=== PATIENT | male | born 1985 | race Caucasian/White ===

== ENCOUNTER 2018-07-19 14:03 | Inpatient (IN) | payer BC ==
[~2018-07-19] VITALS: Ht 182.9 cm; Wt 167.8 kg
--- NOTE | 2018-07-19 14:22 | NUR ---
Note ferdinand in EDM - 07/19/18 at 1427 by IRVIN ED Nurse Note: Patient walked into ED c/o having tunneled, blurry vision and unable to focus and remember words that lasted about 30 minutes this morning. patient reports he was working when it "suddenly happened" Patient reports he has headache now 05/16 that started about 20 minutes ago. patient is ambulatory steady gait denies any dizziness patient is alert awake x4 bilaterally equal strength noted c/o trouble focusing/concentration tunneled vision and unable to remember simple word or express himself over the phone, lasted about 30 min. Patient was working, typing when it happened. Reports no slurred speech or weakness.
[2018-07-19 14:28] VITALS: BP 113/75
--- NOTE | 2018-07-19 14:42 | NUR ---
ED Nurse Note: patient went to CT scan
[2018-07-19 15:00] LABS: BASOPHILS % (AUTO) 0.9 % (0.0-2.0); EOSINOPHILS % (AUTO) 1.3 % (0.0-3.0); HEMATOCRIT 46.2 % (42.0-52.0); HEMOGLOBIN 15.8 G/DL (14.2-18.0); MEAN CORPUSCULAR VOLUME 85 FL (80-99); MONOCYTES % (AUTO) 10.2 % (1.0-10.0); NEUTROPHILS % (AUTO) 48.6 % (45.0-75.0); PLATELET COUNT 233 K/UL (150-450); RED BLOOD COUNT 5.46 M/UL (4.70-6.10); RED CELL DISTRIBUTION WIDTH 11.6 % (11.6-14.8); WHITE BLOOD COUNT 7.2 K/UL (4.8-10.8)
[2018-07-19 15:05] LABS: INR 0.9 (0.9-1.1)
--- NOTE | 2018-07-19 15:05 | NUR ---
ED Nurse Note: Patient came back from CT
[2018-07-19 15:11] LABS: ANION GAP 4 mmol/L (5-15); BLOOD UREA NITROGEN 15 mg/dL (7-18); CARBON DIOXIDE 29 MMOL/L (21-32); CHLORIDE 106 MMOL/L (98-107); CREATININE 0.9 MG/DL (0.55-1.30); POTASSIUM 4.1 MMOL/L (3.5-5.1); SODIUM 139 MMOL/L (136-145)
[2018-07-19 15:15] LABS: ALANINE AMINOTRANSFERASE 50 U/L (12-78); ALBUMIN 3.6 G/DL (3.4-5.0); ALBUMIN/GLOBULIN RATIO 1.1 (1.0-2.7); ALKALINE PHOSPHATASE 61 U/L (46-116); ASPARTATE AMINO TRANSFERASE 20 U/L (15-37); BILIRUBIN,TOTAL 0.4 MG/DL (0.2-1.0); CHOLESTEROL 166 MG/DL (< 200); HDL CHOLESTEROL 45 MG/DL (40-60); TRIGLYCERIDES 108 MG/DL (30-150)
--- NOTE | 2018-07-19 15:17 | Diagnostic Imaging Report ---
Indications: , Blurry vision, headache since 20 minutes ago Technique: Spiral acquisitions obtained through the brain. Angled axial and coronal 5 x 5 mm slices were reconstructed. Total dose length product 1467.37 mGycm. CTDI vol(s) 70.38 mGy. Dose reduction achieved using automated exposure control Comparison: None. Findings: No acute intracranial hemorrhage or edema, mass effect, nor midline shift. Normal martinez-white differentiation. There is slight asymmetry to the size of the lateral ventricles, right larger than left, which is probably physiologic. Otherwise normal size ventricles and extra axial CSF spaces. Intact calvarium. The visualized orbits and sinuses are unremarkable. The mastoids are clear. Impression: Negative Stat code stroke findings phoned to Dr. Morton in the emergency room at the time of interpretation The CT scanner at [facility] is accredited by the [employer] and the scans are performed using protocols designed to limit radiation exposure to as low as reasonably achievable to attain images of sufficient resolution adequate for diagnostic evaluation.
[2018-07-19 15:24] LABS: APPEARANCE,URINE CLEAR; BILIRUBIN, URINE NEGATIVE (NEGATIVE); COLOR,URINE PALE YELLOW; GLUCOSE, URINE (UA) NEGATIVE (NEGATIVE); KETONES,URINE NEGATIVE (NEGATIVE); LEUKOCYTE ESTERASE ,URINE NEGATIVE (NEGATIVE); NITRITE,URINE NEGATIVE (NEGATIVE); PH,URINE 6 (4.5-8.0); PROTEIN,URINE NEGATIVE (NEGATIVE); UROBILINOGEN,URINE NORMAL MG/DL (0.0-1.0)
--- NOTE | 2018-07-19 17:01 | Emergency Room Report ---
History of Present Illness General Chief Complaint: Headache Source: Patient Present Illness HPI 32-year-old male presents ED for evaluation. States that while at work today he felt very confused and was having trouble expressing his words. Coworkers stated that patient may have had some slurred speech as well. Episode lasted for about 30 minutes then resolved. Patient states he feels fine now. Denies any headache. Denies any arm or leg weakness. Denies chest pain. States that he has borderline hypertension. States that there is a family history of CVA. No other aggravating relieving factors. Denies any other associated symptoms Allergies: Coded Allergies: No Known Allergies (Unverified , 07/19/18) Patient History Past Medical History: none Past Surgical History: none Pertinent Family History: none Social History: Denies: smoking, alcohol use, drug use Immunizations: UTD Reviewed Nursing Documentation: PMH: Agreed; PSxH: Agreed Nursing Documentation-PMH Past Medical History: No History, Except For Review of Systems All Other Systems: negative except mentioned in HPI Physical Exam Vital Signs Date Time Temp Pulse Resp B/P (MAP) Pulse Ox O2 Delivery O2 Flow Rate FiO2 07/19/18 14:12 98.1 84 16 136/71 (92) 99 Room Air Sp02 EP Interpretation: reviewed, normal General Appearance: no apparent distress, alert, GCS 15, non-toxic, obese Head: normocephalic, atraumatic Eyes: bilateral eye normal inspection, bilateral eye PERRL, bilateral eye EOMI ENT: hearing grossly normal, normal pharynx, no angioedema, normal voice Neck: full range of motion, supple/symm/no masses Respiratory: chest non-tender, lungs clear, normal breath sounds, speaking full sentences Cardiovascular #1: regular rate, rhythm, no edema Cardiovascular #2: 2+ carotid (R), 2+ carotid (L), 2+ radial (R), 2+ radial (L) , 2+ dorsalis pedis (R), 2+ dorsalis pedis (L) Gastrointestinal: normal bowel sounds, non tender, soft, non-distended, no guarding, no rebound Rectal: deferred Genitourinary: normal inspection, no CVA tenderness Musculoskeletal: back normal, gait/station normal, normal range of motion, non- tender Neurologic: alert, oriented x3, responsive, canvas marker III-XII nml as tested, motor strength/tone normal, sensory intact, cerebellar normal, normal gait, speech normal Psychiatric: judgement/insight normal, memory normal, mood/affect normal, no suicidal/homicidal ideation Reflexes: 3+ bicep (R), 3+ bicep (L), 3+ tricep (R), 3+ tricep (L), 3+ knee (R) , 3+ knee (L) Skin: normal color, no rash, warm/dry, well hydrated Lymphatic: no adenopathy Medical Decision Making Diagnostic Impression: Primary Impression: TIA (transient ischemic attack) ER Course Hospital Course 32-year-old M presents ED complaining of episode of confusion, slurred speech x 30 minutes. Differential diagnoses include: GA/unstable angina, SVT/Vtach/AFib, CVA/TIA Clinical course Patient placed on stretcher. on pvc monitor. After initial history and physical I ordered labs, EKG, and CT head labs reviewed- electrolytes ok, no leukocytosis, Hb/Hct stable EKG - NSR, no acute ischemic changes interpreted by me CT brain - no acute process noted Given aspirin in ED. findings with patient. Concern for TIA given patient obesity and hypertension and family history. No symptoms at this time. Case discussed with Dr. Al and he agreed to accept the patient to his service for further care and support I. I feel this is a highly complex case requiring extensive working including EKG/Rhythm strip, Xray/CT/US, Blood/urine lab work, repeat exams while in ED, and administration of strong opiates/narcotics for pain control, admission to hospital or close patient follow up. Diagnosis - TIA admitted to telemetry in serious condition Labs Test 07/19/18 14:42 07/19/18 15:00 White Blood Count 7.2 K/UL (4.8-10.8) Red Blood Count 5.46 M/UL (4.70-6.10) Hemoglobin 15.8 G/DL (14.2-18.0) Hematocrit 46.2 % (42.0-52.0) Mean Corpuscular Volume 85 FL (80-99) Mean Corpuscular Hemoglobin 28.9 PG (27.0-31.0) Mean Corpuscular Hemoglobin Concent 34.1 G/DL (32.0-36.0) Red Cell Distribution Width 11.6 % (11.6-14.8) Platelet Count 233 K/UL (150-450) Mean Platelet Volume 7.0 FL (6.5-10.1) Neutrophils (%) (Auto) 48.6 % (45.0-75.0) Lymphocytes (%) (Auto) 39.0 % (20.0-45.0) Monocytes (%) (Auto) 10.2 % (1.0-10.0) Eosinophils (%) (Auto) 1.3 % (0.0-3.0) Basophils (%) (Auto) 0.9 % (0.0-2.0) Prothrombin Time 10.1 SEC (9.30-11.50) Prothromb Time International Ratio 0.9 (0.9-1.1) Activated Partial Thromboplast Time 25 SEC (23-33) Sodium Level 139 MMOL/L (136-145) Potassium Level 4.1 MMOL/L (3.5-5.1) Chloride Level 106 MMOL/L (98-107) Carbon Dioxide Level 29 MMOL/L (21-32) Anion Gap 4 mmol/L (5-15) Blood Urea Nitrogen 15 mg/dL (7-18) Creatinine 0.9 MG/DL (0.55-1.30) Estimat Glomerular Filtration Rate > 60 mL/min (>60) Glucose Level 95 MG/DL (74-106) Calcium Level 9.0 MG/DL (8.5-10.1) Total Bilirubin 0.4 MG/DL (0.2-1.0) Aspartate Amino Transf (AST/SGOT) 20 U/L (15-37) Alanine Aminotransferase (ALT/SGPT) 50 U/L (12-78) Alkaline Phosphatase 61 U/L (46-116) Total Protein 6.9 G/DL (6.4-8.2) Albumin 3.6 G/DL (3.4-5.0) Globulin 3.3 g/dL Albumin/Globulin Ratio 1.1 (1.0-2.7) Triglycerides Level 108 MG/DL (30-150) Cholesterol Level 166 MG/DL (< 200) LDL Cholesterol 105 mg/dL (<100) HDL Cholesterol 45 MG/DL (40-60) Cholesterol/HDL Ratio 3.7 (3.3-4.4) Urine Color Pale yellow Urine Appearance Clear Urine pH 6 (4.5-8.0) Urine Specific [place] 1.015 (1.005-1.035) Urine Protein Negative (NEGATIVE) Urine Glucose (UA) Negative (NEGATIVE) Urine Ketones Negative (NEGATIVE) Urine Blood 1+ (NEGATIVE) Urine Nitrite Negative (NEGATIVE) Urine Bilirubin Negative (NEGATIVE) Urine Urobilinogen Normal MG/DL (0.0-1.0) Urine Leukocyte Esterase Negative (NEGATIVE) Urine RBC 0-2 /HPF (0 - 0) Urine WBC 0-2 /HPF (0 - 0) Urine Squamous Epithelial Cells None /LPF (NONE/OCC) Urine Bacteria None /HPF (NONE) EKG Diagnostic Results Rate: normal Rhythm: NSR ST Segments: no acute changes ASA given to the pt in ED: Yes Rhythm Strip Diag. Results EP Interpretation: yes Rhythm: NSR, no PVC's, no ectopy CT/MRI/US Diagnostic Results CT/MRI/US Diagnostic Results : Imaging Test Ordered: CT Head Impression no acute process Last Vital Signs Date Time Temp Pulse Resp B/P (MAP) Pulse Ox O2 Delivery O2 Flow Rate FiO2 07/19/18 14:28 98.1 97 14 113/75 93 Room Air Status: improved Disposition: ADMITTED INPATIENT Condition: Serious Referrals: NOT CHOSEN IPA/,REFERRING (PCP) Alex Leal MD Jul 19, 2018 17:01
[2018-07-19] MEDS ORDERED: Albuterol/Ipratropium 3ml neb HHN PRN (17:30)
[2018-07-19] MEDS ORDERED: Miralax 17gm pkt ORAL PRN (17:30)
[2018-07-19] MEDS ORDERED: Morphine Sulfate 2mg/ml Inj(IV/IM USE ONLY) IVP PRN (17:30)
[2018-07-19] MEDS ORDERED: Promethazine/Codeine 5ml UD ORAL PRN (17:30)
[2018-07-19] MEDS ORDERED: Nitroglycerin Subl 0.4mg tab SL PRN (17:30)
[2018-07-19] MEDS ORDERED: LORazepam Inj 2mg/ml 1ml IV PRN (17:30)
--- NOTE | 2018-07-19 17:37 | NUR ---
ED Nurse Note: called 2E and spoke with Ok, he said charge nurse has not assigned nurse yet, charge nurse has patient.
--- NOTE | 2018-07-19 17:55 | NUR ---
ED Nurse Note: called 2E again and Bean RICKETTS said he cannot take any patient at this time. JAMARCUS made aware, nursing supervisor mold cleaning and storage made aware
--- NOTE | 2018-07-19 18:11 | NUR ---
ED Nurse Note: carotid duplex scan being done at bedside
--- NOTE | 2018-07-19 18:12 | NUR ---
ED Nurse Note: reports given to Bean RICKETTS. patient is getting carotid duplex, will go up after the scan. JAMARCUS made awre
--- NOTE | 2018-07-19 18:55 | NUR ---
ED Nurse Note: patient is being transferred to 2E with all of his belongings. report given to Bean BUTT. patient is transferred to 220 without any complication.
--- NOTE | 2018-07-19 19:30 | NUR ---
OBTAINED REPORT FROM ABIEL BUTT . PT IS A NEW ADMISSION.
--- NOTE | 2018-07-19 19:30 | NUR ---
PT IS A NEW ADMISSION, HE IS A 32 YEAR OLD MALE ADMITTED UNDER OBSERVATION STATUS TO RULE OUT TRANSIENT ISCHEMIC ATTACK. HE REPORTS THAT WHILE HE WAS AT WORK TODAY AROUND 1300 HE BEGAN HAVING BLURRED VISION TO THE RIGHT EYE AND DIFFICULTY WITH SPEECH(NOW RESOLVED PER PT). PT REPORTS HE TAKES NO MEDS AT HOME. HE STATES ONLY RELEVANT MEDICAL HISTORY INCLUDES CHICKEN POX A CHILD AND SURGERY TO RIGHT SHOULDER IN 2003. HEAD TO TOE ASSESSMENT DONE. ADMISSION PROTOCOL COMPLETE. PT ORIENTED TO UNIT AND STAFF. ALL NEEDS ANTICIPATED AND MET. PT EDUCATED ON RISK FOR FALLS AND RISK FOR SKIN BREAKDOWN.VERBALIZED UNDERSTANDING. CALL LIGHT WITHIN REACH AT ALL TIMES.
[2018-07-19 20:00] VITALS: BP 127/82
[2018-07-19] MEDS: Heparin 5000 units/ml inj SUBQ SCH (20:48)
[2018-07-19] MEDS: D5 1/2NS 1,000 ML IV SCH (20:53)
[2018-07-20] VITALS: BP 110/74
[2018-07-20 06:55] LABS: ANION GAP 10 mmol/L (5-15); BLOOD UREA NITROGEN 13 mg/dL (7-18); CALCIUM 8.3 MG/DL (8.5-10.1); CARBON DIOXIDE 26 MMOL/L (21-32); CHLORIDE 105 MMOL/L (98-107); CREATININE 0.8 MG/DL (0.55-1.30); POTASSIUM 3.4 MMOL/L (3.5-5.1); SODIUM 141 MMOL/L (136-145)
[2018-07-20 06:56] LABS: AMMONIA 39 umol/L (11-32)
[2018-07-20 07:00] LABS: ALANINE AMINOTRANSFERASE 45 U/L (12-78); ALBUMIN 3.6 G/DL (3.4-5.0); ALBUMIN/GLOBULIN RATIO 1.3 (1.0-2.7); ALKALINE PHOSPHATASE 49 U/L (46-116); ASPARTATE AMINO TRANSFERASE 25 U/L (15-37); BILIRUBIN,TOTAL 0.8 MG/DL (0.2-1.0); CHOLESTEROL 155 MG/DL (< 200); HDL CHOLESTEROL 40 MG/DL (40-60); TRIGLYCERIDES 123 MG/DL (30-150)
--- NOTE | 2018-07-20 07:15 | NUR ---
HAND-OFF: REPORT GIVEN TO ABIEL BUTT. PT RESTING IN BED FREE FROM APPARENT DISTRESS.
--- NOTE | 2018-07-20 08:00 | NUR ---
NURSE NOTES: Report was given by FILOMENA Ley. Patient's awake and laying in bed. Patient's comfortable, no sign of SOB or distress. Patient denied pain. Full ROM and strength both upper and lower bilaterals. IV site is running and no sign of tenderdess, swelling or redness. Bed in lowest position, call light within reach.
[2018-07-20 08:33] VITALS: BP 152/91
[2018-07-20] MEDS: Heparin 5000 units/ml inj SUBQ SCH (09:00)
--- NOTE | 2018-07-20 09:16 | NUR ---
ST NOTE: BEDSIDE SWALLOW EVAL RECEIVED BEDSIDE SWALLOW EVAL ORDER CHART REVIEWED PRIOR THE EVALUATION PT IS A [id number] WHO WAS ADMITTED TO [facility] FOR POSSIBLE TIA. PT STATED THAT HAVING A HEADACHE AFTER FINISHING HIS JOB IN FRONT OF THE COMPUTER; AND HE CALLED HIS COLLEAGUES. AND HIS COLLEAGUES NOTICED THAT HE TALKED VERY SLOW, AND PT ALSO STATED THAT HAVING TROUBLE WITH HIS R-SIDED VISION AND WORD-FINDING; AND IT WAS LAST 30 MINS AND GOT RESOLVED. PER PT, HE WORKS AT [employer]; AND LIVES IN AN APARTMENT WITH ROOMMATE. CURRENT STATUS: PT SEEN AT BEDSIDE IN AM. ALERT, COOPERATIVE, FOLLOWS DIRECTIONS, ORIENTED. PO TRIALS: THIN(CUP-SELF), PUREE(TSP) AND CRACKER IMPRESSION: GOOD LABIAL AND LINGUAL RANGE OF MOTION AND STRENGTH GOOD ORAL TRANSIT TIME, GOOD LARYNGEAL ELEVATION, NO OVERT S/S OF ASPIRATION WAS NOTED. OVERALL, PT'S SWALLOWING IS FUNCTIONAL. RECOMMENDATIONS: 1. SLOWLY INITIATE REGULAR WITH THIN LIQUID DIET 2. GENERAL ASPIRATION PRECAUTIONS 3. RD CONSULT. NO FURTHER SKILLED ST SERVICE IS REQUIRED AT THIS TIME. D/W PT AND RNABIEL.
[2018-07-20 10:47] LABS: BASOPHILS % (AUTO) 0.7 % (0.0-2.0); EOSINOPHILS % (AUTO) 1.2 % (0.0-3.0); HEMATOCRIT 41.7 % (42.0-52.0); HEMOGLOBIN 15.1 G/DL (14.2-18.0); LYMPHOCYTES % (AUTO) 48.4 % (20.0-45.0); MEAN CORPUSCULAR VOLUME 81 FL (80-99); MONOCYTES % (AUTO) 8.6 % (1.0-10.0); PLATELET COUNT 199 K/UL (150-450); RED BLOOD COUNT 5.13 M/UL (4.70-6.10); RED CELL DISTRIBUTION WIDTH 11.3 % (11.6-14.8); WHITE BLOOD COUNT 7.2 K/UL (4.8-10.8)
--- NOTE | 2018-07-20 11:20 | NUR ---
CASE MANAGEMENT: INITIAL REVIEW 07/19/2018 32 YO M PRESENTED TO ED FROM HOME CC: KINNEY. TROUBLE CONCENTRATING. PMHx: BORDERLINE HTN. SI:TIA. T 98.1 HR 84 RR 16 B/P 136/71 SATS 99% ON RA LDL CHOL 105 IS: NO MEDS IN ED PATIENT ADMITTED TO TELE 07/19/2018 @ 1625 DCP: PATIENT TO BE DISCHARGED TO HOME ONCE MEDICALLY CLEARED. PLAN OF CARE: 2D ECHO CARDIO EVAL ST EVAL ST/PT EVAL NEURO CONSULT 07/20/2018 SI:TIA. T 98.2 HR 80 RR 20 B/P 152/91 SATS 96% ON RA K 3.4 CA 8.3 AMMONIA 39 LDL 101 IS: IVF @ 50 mL/HR TELE STATUS DCP: PATIENT TO BE DISCHARGED TO HOME ONCE MEDICALLY CLEARED. PLAN OF CARE: 2D ECHO CARDIO EVAL ST EVAL ST/PT EVAL NEURO CONSULT Addendum: 07/20/18 at 1128 by Karol Gibson CM HEAD CT (-) INTERQUAL MET
--- NOTE | 2018-07-20 11:24 | NUR ---
P.T Note: P.T. evaluation completed. Pt received sitting in chair/recliner. Pt is alert, Ox 4 , pleasant and cooperative. No c/o pain. Nuero checked and remained intact. No strength deficit nor balance deficit noted. Pt is independent in all areas of ADL/functional mobilities and gait/locomotion. Current functional status does not warrant skilled P.T service at this time. [place] P.T services. Thank you for this referral.
[2018-07-20 12:00] VITALS: BP 161/99
--- NOTE | 2018-07-20 12:14 | Consultation ---
History of Present Illness General Date patient seen: Jul 20, 2018 Chief Complaint: Headache Present Illness HPI 32-year-old male without any pmhx presented to ED for evaluation because he was confused and was having trouble expressing his words. Coworkers stated that patient may have had some slurred speech as well. Episode lasted for about 30 minutes then resolved. Allergies: Coded Allergies: No Known Allergies (Unverified , 07/19/18) Patient History Healthcare decision maker MOTHERDOROTHY ROSSI [phone] Resuscitation status Full Code Advanced Directive on File Review of Systems Constitutional: Reports: no symptoms Eye: Reports: no symptoms Endocrine: Reports: no symptoms Hematologic/Lymphatic: Reports: no symptoms Physical Exam General Appearance: WD/WN Lines, tubes and drains: peripheral, central line HEENT: normocephalic, atraumatic Neck: non-tender, normal alignment Respiratory/Chest: chest wall non-tender, lungs clear Cardiovascular/Chest: normal peripheral pulses Abdomen: normal bowel sounds Genitourinary/Rectal: normal genital exam Skin Exam: normal pigmentation, cyanotic Last 24 Hour Vital Signs Date Time Temp Pulse Resp B/P (MAP) Pulse Ox O2 Delivery O2 Flow Rate FiO2 07/20/18 09:03 Room Air Room Air 07/20/18 08:33 98.2 80 20 152/91 (111) 96 07/20/18 07:58 83 07/20/18 04:00 81 07/20/18 00:00 86 07/20/18 00:00 98.6 89 20 110/74 (86) 95 07/19/18 21:57 Room Air 07/19/18 21:00 Room Air 07/19/18 20:00 86 07/19/18 20:00 97.7 89 20 127/82 (97) 97 07/19/18 18:59 98.1 97 14 113/75 93 Room Air 07/19/18 14:28 98.1 97 14 113/75 93 Room Air 07/19/18 14:12 98.1 84 16 136/71 (92) 99 Room Air Intake and Output 07/19/18 07/20/18 19:00 07:00 Intake Total 0 ml Balance 0 ml Intake Oral 0 ml Laboratory Tests Test 07/19/18 14:42 07/19/18 15:00 07/20/18 04:45 6/14/19 09:34 White Blood Count 7.2 K/UL (4.8-10.8) 7.2 K/UL (4.8-10.8) Red Blood Count 5.46 M/UL (4.70-6.10) 5.13 M/UL (4.70-6.10) Hemoglobin 15.8 G/DL (14.2-18.0) 15.1 G/DL (14.2-18.0) Hematocrit 46.2 % (42.0-52.0) 41.7 % (42.0-52.0) L Mean Corpuscular Volume 85 FL (80-99) 81 FL (80-99) Mean Corpuscular Hemoglobin 28.9 PG (27.0-31.0) 29.3 PG (27.0-31.0) Mean Corpuscular Hemoglobin Concent 34.1 G/DL (32.0-36.0) 36.1 G/DL (32.0-36.0) H Red Cell Distribution Width 11.6 % (11.6-14.8) 11.3 % (11.6-14.8) L Platelet Count 233 K/UL (150-450) 199 K/UL (150-450) Mean Platelet Volume 7.0 FL (6.5-10.1) 5.7 FL (6.5-10.1) L Neutrophils (%) (Auto) 48.6 % (45.0-75.0) 41.0 % (45.0-75.0) L Lymphocytes (%) (Auto) 39.0 % (20.0-45.0) 48.4 % (20.0-45.0) H Monocytes (%) (Auto) 10.2 % (1.0-10.0) H 8.6 % (1.0-10.0) Eosinophils (%) (Auto) 1.3 % (0.0-3.0) 1.2 % (0.0-3.0) Basophils (%) (Auto) 0.9 % (0.0-2.0) 0.7 % (0.0-2.0) Prothrombin Time 10.1 SEC (9.30-11.50) 10.7 SEC (9.30-11.50) Prothromb Time International Ratio 0.9 (0.9-1.1) 1.0 (0.9-1.1) Activated Partial Thromboplast Time 25 SEC (23-33) 26 SEC (23-33) Sodium Level 139 MMOL/L (136-145) 141 MMOL/L (136-145) Potassium Level 4.1 MMOL/L (3.5-5.1) 3.4 MMOL/L (3.5-5.1) L Chloride Level 106 MMOL/L (98-107) 105 MMOL/L (98-107) Carbon Dioxide Level 29 MMOL/L (21-32) 26 MMOL/L (21-32) Anion Gap 4 mmol/L (5-15) L 10 mmol/L (5-15) Blood Urea Nitrogen 15 mg/dL (7-18) 13 mg/dL (7-18) Creatinine 0.9 MG/DL (0.55-1.30) 0.8 MG/DL (0.55-1.30) Estimat Glomerular Filtration Rate > 60 mL/min (>60) > 60 mL/min (>60) Glucose Level 95 MG/DL (74-106) 96 MG/DL (74-106) Calcium Level 9.0 MG/DL (8.5-10.1) 8.3 MG/DL (8.5-10.1) L Total Bilirubin 0.4 MG/DL (0.2-1.0) 0.8 MG/DL (0.2-1.0) Aspartate Amino Transf (AST/SGOT) 20 U/L (15-37) 25 U/L (15-37) Alanine Aminotransferase (ALT/SGPT) 50 U/L (12-78) 45 U/L (12-78) Alkaline Phosphatase 61 U/L (46-116) 49 U/L (46-116) Total Protein 6.9 G/DL (6.4-8.2) 6.4 G/DL (6.4-8.2) Albumin 3.6 G/DL (3.4-5.0) 3.6 G/DL (3.4-5.0) Globulin 3.3 g/dL 2.8 g/dL Albumin/Globulin Ratio 1.1 (1.0-2.7) 1.3 (1.0-2.7) Triglycerides Level 108 MG/DL (30-150) 123 MG/DL (30-150) Cholesterol Level 166 MG/DL (< 200) 155 MG/DL (< 200) LDL Cholesterol 105 mg/dL (<100) H 101 mg/dL (<100) H HDL Cholesterol 45 MG/DL (40-60) 40 MG/DL (40-60) Cholesterol/HDL Ratio 3.7 (3.3-4.4) 3.9 (3.3-4.4) Urine Color Pale yellow Urine Appearance Clear Urine pH 6 (4.5-8.0) Urine Specific [place] 1.015 (1.005-1.035) Urine Protein Negative (NEGATIVE) Urine Glucose (UA) Negative (NEGATIVE) Urine Ketones Negative (NEGATIVE) Urine Blood 1+ (NEGATIVE) H Urine Nitrite Negative (NEGATIVE) Urine Bilirubin Negative (NEGATIVE) Urine Urobilinogen Normal MG/DL (0.0-1.0) Urine Leukocyte Esterase Negative (NEGATIVE) Urine RBC 0-2 /HPF (0 - 0) H Urine WBC 0-2 /HPF (0 - 0) Urine Squamous Epithelial Cells None /LPF (NONE/OCC) Urine Bacteria None /HPF (NONE) Ammonia 39 umol/L (11-32) H Thyroid Stimulating Hormone (TSH) 2.653 uiU/mL (0.358-3.740) Height (Feet): 6 Weight (Pounds): 370 Medications Current Medications Medications (Trade) Dose Ordered Sig/Lara Route PRN Reason Start Time Stop Time Status Last Admin Dose Admin Acetaminophen (Tylenol) 650 mg Q4H PRN ORAL fever 07/19/18 17:30 08/18/18 17:29 Albuterol/ Ipratropium (Albuterol/ Ipratropium) 3 ml Q4H PRN HHN Shortness of Breath 07/19/18 17:30 07/24/18 17:29 Clonidine HCl (Catapres Tab) 0.1 mg Q4H PRN ORAL For High Blood Pressure 07/19/18 17:30 08/18/18 17:29 Dextrose (Dextrose 50%) 25 ml Q30M PRN IV Hypoglycemia 07/19/18 17:30 08/18/18 17:29 Dextrose (Dextrose 50%) 50 ml Q30M PRN IV Hypoglycemia 07/19/18 17:30 08/18/18 17:29 Dextrose/Sodium Chloride 1,000 ml @ 50 mls/hr Q20H IV 07/19/18 17:30 08/18/18 17:29 07/19/18 20:53 Heparin Sodium (Porcine) (Heparin 5000 units/ml) 5,000 units EVERY 12 HOURS SUBQ 07/19/18 21:00 08/18/18 20:59 07/19/18 20:48 Lorazepam (Ativan 2mg/ml 1ml) 0.5 mg Q4H PRN IV For Anxiety 07/19/18 17:30 07/26/18 17:29 Morphine Sulfate (Morphine Sulfate) 1 mg Q4H PRN IVP For Pain 7-07/19/18 17:30 07/26/18 17:29 Nitroglycerin (Ntg) 0.4 mg Q5M X 3 DOSES PRN SL Prn Chest Pain 07/19/18 17:30 08/18/18 17:29 Ondansetron HCl (Zofran) 4 mg Q6H PRN IVP Nausea & Vomiting 07/19/18 17:30 08/18/18 17:29 Polyethylene Glycol (Miralax) 17 gm HSPRN PRN ORAL Constipation 07/19/18 17:30 08/18/18 17:29 Promethazine HCl/ Codeine (Phenergan with Codeine) 5 ml Q4H PRN ORAL For Cough 07/19/18 17:30 08/18/18 17:29 Temazepam (Restoril) 15 mg HSPRN PRN ORAL Insomnia 07/19/18 17:30 07/26/18 17:29 Assessment/Plan Problem List: (1) TIA (transient ischemic attack) ICD Codes: G45.9 - Transient cerebral ischemic attack, unspecified SNOMED: [id number] Assessment/Plan: neuro evaluation echo doppler of carotid artery MRI of brain Madie Knight MD Jul 20, 2018 12:14
--- NOTE | 2018-07-20 12:36 | NUR ---
NURSE NOTES: Patient off tele order for Brain MRI. Patient's aware.
[2018-07-20] MEDS: D5 1/2NS 1,000 ML IV SCH (14:30)
--- NOTE | 2018-07-20 14:41 | NUR ---
*-* INSURANCE *-* ALL CLINICALS AND REVIEWS HAVE BEEN FAXED. [facility] PRE CERT [phone] REPORTED TO: HAYDEE SINCLAIR# [id number] FAX# [phone] SEND CLINICALS
[2018-07-20 16:00] VITALS: BP 141/90
--- NOTE | 2018-07-20 17:35 | Consultation ---
History of Present Illness General Date patient seen: Jul 20, 2018 Chief Complaint: Possible TIA Referring physician: Dr. Clayton Ferrer Present Illness HPI Edvin Rossi is a obese 32-year-old male without any known pmhx who presented to ED for evaluation because he was confused and was having trouble expressing his words. Coworkers stated that patient may have had some slurred speech as well. This episode lasted for about 30 minutes then resolved. He denies any history of seizures, headaches, malaise, recent travel or similar episodes. He is alert, oriented and mobile at baseline. He also confirms that his father had a TIA/CVA x 10 years ago and obesity runs in the family. Upon further interview he does however report that his diet and activity have been increasingly poor over the last 18months. He admits to being largely sedentary and gaining a signficant amount of weight. Allergies: Coded Allergies: No Known Allergies (Unverified , 07/19/18) Patient History History Provided By: Patient, Medical Record Healthcare decision maker MOTHER-AYAZ ROSSI [phone] Resuscitation status Full Code Advanced Directive on File Review of Systems Constitutional: Denies: no symptoms, see HPI, chills, sweats, fever, malaise, weakness, other Eye: Denies: no symptoms, see HPI, eye pain, blurred vision, tearing, double vision, nose pain, nose congestion, acuity changes, discharge, other ENT: Denies: no symptoms, see HPI, ear pain, ear discharge, nose pain, nose congestion, throat pain, throat swelling, mouth pain, hearing loss, nasal discharge, other Respiratory: Denies: no symptoms, see HPI, cough, orthopnea, shortness of breath, stridor, wheezing, PORTER, sputum, other Cardiovascular: Denies: no symptoms, see HPI, chest pain, edema, palpitations, syncope, PND, other Gastrointestinal: Denies: no symptoms, see HPI, abdominal pain, constipation, diarrhea, nausea, vomiting, melena, hematemesis, other Genitourinary: Denies: no symptoms, see HPI, discharge, dysuria, frequency, hematuria, pain, retention, incontinence, urgency, vag bleed/dc, other Musculoskeletal: Denies: no symptoms, see HPI, back pain, gout, joint pain, joint swelling, muscle pain, muscle stiffness, other Skin: Denies: no symptoms, see HPI, rash, change in color, change in hair/nails , dryness, lesions, other Psychiatric: Denies: no symptoms, see HPI, prior hx, anxiety, depressed feelings, emotional problems, SI, HI, hallucinations, other Neurological: Denies: no symptoms, see HPI, headache, numbness, paresthesia, seizure, tingling, tremors, focal weakness, syncope, dizziness, other Endocrine: Denies: no symptoms, see HPI, excessive sweating, flushing, intolerance to temperature, increased thirst, increased urine, unexplained weight loss, other Hematologic/Lymphatic: Denies: no symptoms, see HPI, anemia, blood clots, easy bleeding, easy bruising, swollen glands, diathesis, other Physical Exam General Appearance: WD/WN, no apparent distress, alert, lethargic, obese Lines, tubes and drains: peripheral HEENT: normocephalic, atraumatic, anicteric, mucous membranes moist, PERRL, EOMI, pharynx normal, supple, no JVD Neck: non-tender, normal alignment, supple, normal inspection Respiratory/Chest: lungs clear, normal breath sounds, no respiratory distress, no accessory muscle use, respiratory distress Cardiovascular/Chest: normal peripheral pulses, normal rate, regular rhythm, no JVD Abdomen: normal bowel sounds, non tender, soft, no organomegaly, no mass Extremities: normal range of motion, non-tender, normal inspection, no calf tenderness, normal capillary refill, non-pitting, no edema, no cyanosis Skin Exam: normal pigmentation, warm/dry, cyanotic Neurologic: marketing consultant II-XII grossly normal, no motor/sensory deficits - Trace left arm and leg weakness but does not feel weak or tired today , alert, oriented x 3 , responsive, normal mood/affect Musculoskeletal: normal muscle bulk, no effusion, atrophy Last 24 Hour Vital Signs Date Time Temp Pulse Resp B/P (MAP) Pulse Ox O2 Delivery O2 Flow Rate FiO2 07/20/18 16:00 98.7 87 20 141/90 (107) 99 07/20/18 16:00 92 07/20/18 12:00 97.5 91 20 161/99 (119) 96 07/20/18 12:00 106 07/20/18 09:03 Room Air Room Air 07/20/18 08:33 98.2 80 20 152/91 (111) 96 07/20/18 07:58 83 07/20/18 04:00 81 07/20/18 00:00 86 07/20/18 00:00 98.6 89 20 110/74 (86) 95 07/19/18 21:57 Room Air 07/19/18 21:00 Room Air 07/19/18 20:00 86 07/19/18 20:00 97.7 89 20 127/82 (97) 97 07/19/18 18:59 98.1 97 14 113/75 93 Room Air Intake and Output 07/19/18 07/20/18 19:00 07:00 Intake Total 0 ml Balance 0 ml Intake Oral 0 ml Laboratory Tests Test 07/20/18 04:45 07/20/18 09:34 Sodium Level 141 MMOL/L (136-145) Potassium Level 3.4 MMOL/L (3.5-5.1) L Chloride Level 105 MMOL/L (98-107) Carbon Dioxide Level 26 MMOL/L (21-32) Anion Gap 10 mmol/L (5-15) Blood Urea Nitrogen 13 mg/dL (7-18) Creatinine 0.8 MG/DL (0.55-1.30) Estimat Glomerular Filtration Rate > 60 mL/min (>60) Glucose Level 96 MG/DL (74-106) Calcium Level 8.3 MG/DL (8.5-10.1) L Total Bilirubin 0.8 MG/DL (0.2-1.0) Aspartate Amino Transf (AST/SGOT) 25 U/L (15-37) Alanine Aminotransferase (ALT/SGPT) 45 U/L (12-78) Alkaline Phosphatase 49 U/L (46-116) Ammonia 39 umol/L (11-32) H Total Protein 6.4 G/DL (6.4-8.2) Albumin 3.6 G/DL (3.4-5.0) Globulin 2.8 g/dL Albumin/Globulin Ratio 1.3 (1.0-2.7) Triglycerides Level 123 MG/DL (30-150) Cholesterol Level 155 MG/DL (< 200) LDL Cholesterol 101 mg/dL (<100) H HDL Cholesterol 40 MG/DL (40-60) Cholesterol/HDL Ratio 3.9 (3.3-4.4) Thyroid Stimulating Hormone (TSH) 2.653 uiU/mL (0.358-3.740) White Blood Count 7.2 K/UL (4.8-10.8) Red Blood Count 5.13 M/UL (4.70-6.10) Hemoglobin 15.1 G/DL (14.2-18.0) Hematocrit 41.7 % (42.0-52.0) L Mean Corpuscular Volume 81 FL (80-99) Mean Corpuscular Hemoglobin 29.3 PG (27.0-31.0) Mean Corpuscular Hemoglobin Concent 36.1 G/DL (32.0-36.0) H Red Cell Distribution Width 11.3 % (11.6-14.8) L Platelet Count 199 K/UL (150-450) Mean Platelet Volume 5.7 FL (6.5-10.1) L Neutrophils (%) (Auto) 41.0 % (45.0-75.0) L Lymphocytes (%) (Auto) 48.4 % (20.0-45.0) H Monocytes (%) (Auto) 8.6 % (1.0-10.0) Eosinophils (%) (Auto) 1.2 % (0.0-3.0) Basophils (%) (Auto) 0.7 % (0.0-2.0) Prothrombin Time 10.7 SEC (9.30-11.50) Prothromb Time International Ratio 1.0 (0.9-1.1) Activated Partial Thromboplast Time 26 SEC (23-33) Height (Feet): 6 Weight (Pounds): 370 Medications Current Medications Medications (Trade) Dose Ordered Sig/Lara Route PRN Reason Start Time Stop Time Status Last Admin Dose Admin Acetaminophen (Tylenol) 650 mg Q4H PRN ORAL fever 07/19/18 17:30 08/18/18 17:29 Albuterol/ Ipratropium (Albuterol/ Ipratropium) 3 ml Q4H PRN HHN Shortness of Breath 07/19/18 17:30 07/24/18 17:29 Clonidine HCl (Catapres Tab) 0.1 mg Q4H PRN ORAL For High Blood Pressure 07/19/18 17:30 08/18/18 17:29 Dextrose (Dextrose 50%) 25 ml Q30M PRN IV Hypoglycemia 07/19/18 17:30 08/18/18 17:29 Dextrose (Dextrose 50%) 50 ml Q30M PRN IV Hypoglycemia 07/19/18 17:30 08/18/18 17:29 Dextrose/Sodium Chloride 1,000 ml @ 50 mls/hr Q20H IV 07/19/18 17:30 08/18/18 17:29 07/19/18 20:53 Heparin Sodium (Porcine) (Heparin 5000 units/ml) 5,000 units EVERY 12 HOURS SUBQ 07/19/18 21:00 08/18/18 20:59 07/19/18 20:48 Lorazepam (Ativan 2mg/ml 1ml) 0.5 mg Q4H PRN IV For Anxiety 07/19/18 17:30 07/26/18 17:29 Morphine Sulfate (Morphine Sulfate) 1 mg Q4H PRN IVP For Pain 7-07/19/18 17:30 07/26/18 17:29 Nitroglycerin (Ntg) 0.4 mg Q5M X 3 DOSES PRN SL Prn Chest Pain 07/19/18 17:30 08/18/18 17:29 Ondansetron HCl (Zofran) 4 mg Q6H PRN IVP Nausea & Vomiting 07/19/18 17:30 08/18/18 17:29 Polyethylene Glycol (Miralax) 17 gm HSPRN PRN ORAL Constipation 07/19/18 17:30 08/18/18 17:29 Promethazine HCl/ Codeine (Phenergan with Codeine) 5 ml Q4H PRN ORAL For Cough 07/19/18 17:30 08/18/18 17:29 Temazepam (Restoril) 15 mg HSPRN PRN ORAL Insomnia 07/19/18 17:30 07/26/18 17:29 Assessment/Plan Problem List: (1) TIA (transient ischemic attack) ICD Codes: G45.9 - Transient cerebral ischemic attack, unspecified SNOMED: 980665466 (2) Hypertension ICD Codes: I10 - Essential (primary) hypertension SNOMED: 33038827 Status: stable Assessment/Plan: Likely TIA given overall picture of metabolic syndrome with undiagnosed mild hyperlipidemia, obesity, hypertension and sedentary lifestyle. Recommend he start 81mg ASA per day. Start Atorvastatin 20mg QD or modify diet and follow up with PCP in 3 months to discuss after re-evaluation at that time. Follow up as outpatient for MRI Brain w/o contrast - suspicion for acute CVA is low and patient unable to fit in MRI at this time. He is hemodynamically stable with resolution of all symptoms. Discussed follow up as outpatient for studies for sleep apnea with Dr. Ferrer and Neurology for MRI Secondary prevention discussed with patient extensively. Sharona Aguilar N.P. Jul 20, 2018 17:35
--- NOTE | 2018-07-20 18:24 | History & Physical ---
History and Physical History & Physicial Job @ [id number] Clayton Ferrer MD Jul 20, 2018 18:24
--- NOTE | 2018-07-20 18:25 | NUR ---
NURSE NOTES: MD Ferrer ordered discharge for the patient, patient's aware. ID band removed, IV removed, VS WNL. Patient's AO X 4, patient's getting dressed and will take UBER home. After care plan and med recon given. One prescription of ASA 81 mg PO QD is prescribed, neuro cleared patient. Carotid duplex negative. HA1C WNL. No s/s of distress nor SOB noted.
[2018-07-20] MEDS ORDERED: ASPIR 8181 MG ORAL (18:27)
--- NOTE | 2018-07-20 23:30 | History and Physical Report ---
DATE OF ADMISSION: 07/19/2018 CHIEF COMPLAINT: Difficulty speech and altered mental status. HISTORY OF PRESENT ILLNESS: This is a 32-year-old gentleman denies any past medical history except past surgical history significant for the right shoulder rotator cuff repair in 2003, who has presented to the emergency room complaining about the difficulty speech and finding words and it happened to him while he was at work, trouble speaking, and a co-worker was on the phone and subsequently, the patient was transferred to the hospital. Shortly after initial evaluation in the emergency, his episode has been resolved and he had no deficits in the ER. He denies any headache. Denies any fall or head trauma. Denies any tingling, numbness in the arms and weakness. Denies any chest pain or palpitation. He was noted to have borderline hypertension. Family history of a stroke and transient ischemic attack in father. Shortly after initial evaluation in the emergency, the patient was admitted to the hospital with difficulty speech pattern, possible transient ischemic attack versus cerebrovascular accident. PAST MEDICAL HISTORY/PAST SURGICAL HISTORY: As above. History of right shoulder rotator cuff repair in 2003. MEDICATIONS AT HOME: None. ALLERGIES: No known drug allergies. SOCIAL HISTORY: The patient denies any smoking, alcohol, or drugs. He uses THC occasionally every other weekend. He works as a application security consultant. No chemical exposure. FAMILY HISTORY: Father, history of transient ischemic attack. Mother is healthy and active. REVIEW OF SYSTEMS: Mostly as above. Denies any dysuria, frequency, or hematuria. Denies any hemoptysis or hematochezia. Denies any suicidal or homicidal ideation. Denies any loss of consciousness. Denies any fall or head trauma. Denies any double vision. Denies any bowel or urine incontinence. PHYSICAL EXAMINATION: VITAL SIGNS: On admission from the ER, temperature 98.1, pulse of 84, respirations 16, and blood pressure 136/71. GENERAL: The patient is awake and responsive, in no acute distress. HEAD AND NECK: Pupils are reactive to light. Extraocular movements intact. Neck was supple. No JVD. LUNGS: Good air entry. No wheezing or rales. HEART: Reveals S1, S2. Regular rhythm. No gallops. ABDOMEN: Soft, nondistended, and nontender. No rebound tenderness. No fluid shift. Morbidly obese. EXTREMITIES: No cyanosis, clubbing, or edema. NEUROLOGIC: Cranial nerves II through XII grossly intact. Motor is 5/5 in all extremities. Gait is intact. RECTAL AND GENITOURINARY: Refused and deferred. PSYCHIATRIC: Mood and affect is intact. LABORATORY DATA: On admission, WBC of 7.2, hemoglobin 15, hematocrit 46, and platelets is 233,000. Sodium 139, potassium 4.1, chloride 106, bicarbonate 29, BUN 15, and creatinine 0.9. Hemoglobin A1c is 5.6. Total protein 6.9. Cholesterol is 155 and LDL is 101. TSH is 2.653. PT of 10, INR 0.9, and PTT of 25. Urinalysis, +1 blood, otherwise 0 to 2 rbc's and negative leukocytes. The patient had a CT of the head was done in the emergency room, negative for acute finding. The patient's carotid duplex shows that no significant plaque was found. Normal carotids. Echocardiogram was done in the hospital, noted to be ejection fraction of 60% with mild left ventricular hypertrophy. No evidence of pericardial effusion. All the chambers within normal limits. Normal-appearing aortic, mitral, as well as tricuspid valve. Trace tricuspid regurgitation. Trace systolic velocity suggestive of the peak right ventricular systolic pressure of 28. ASSESSMENT: 1. Altered mental status with expiration difficulty, possible due to the transient ischemic attack. 2. Morbid obesity. 3. Presumably obstructive sleep apnea. PLAN: At this time, the patient is medically cleared to be discharged. Consider to follow up with my office within one week in order to evaluate further evaluation for obstructive sleep apnea, including polysomnography. The patient has been seen by Dr. Knight, Pulmonary Critical Care as well as Nurse Practitioner, Sharona from Neurology. Code status at this time is Full Code. DVT prophylaxis with heparin subcutaneous. The patient was advised to monitor blood pressure at home and follow up in my office within one week. Clayton Ferrer M.D. DR: BENNETT JOB#: [id number] CC:
--- NOTE | 2018-07-21 09:24 | Diagnostic Imaging Report ---
APPROVED REPORT CPT Code: 47795 Present Symptoms Comments: BILATERAL LEGS PAIN. BILATERAL: Imaging reveals a patent deep venous system bilaterally. There is no evidence of thrombus within the femoral, popliteal or tibial segments. The greater saphenous veins are also within normal limits. Doppler indicates normal spontaneous flow within these segments.
--- NOTE | 2018-07-21 09:27 | Diagnostic Imaging Report ---
APPROVED REPORT CPT Code: 79315 Vascular Symptoms Comments: CVA. CAROTID (BILATERAL) - Imaging reveals no significant plaque within the right and left extracranial carotid arteries. The Doppler spectral flow analysis is within normal limits throughout the extracranial carotid arteries bilaterally. VERTEBRAL- The vertebral arteries are within normal limits.
--- NOTE | 2018-07-22 12:15 | Discharge Summary ---
Discharge Summary Discharge Summary _ DATE OF ADMISSION: 07/19/2018 DATE OF DISCHARGE: 07/20/2018 DISCHARGED BY: Dr Ferrer REASON FOR ADMISSION: 32 years old morbidly obese ( with BMI of 50 ) with borderline hypertension, presented to emergency room for evaluation. Apparently at work he was confused and had trouble expressing his words. Coworkers also reported that patient had slurred speech. Episode lasted about 30 minutes and then resolved. Patient reported feeling better at the time of presentation to ED. He denied chest pain, headache. He denied arm or leg weakness. He denied chest pain. Patient reported family history of CVA. Upon evaluation vital signs were stable. CT of the head revealed no evidence of acute intracranial bleeding or mass- effect. EKG showed normal sinus rhythm, no acute ischemic changes. Laboratory work was unremarkable. Patient received aspirin in emergency department. There was a concern for probable TIA, given morbid obesity, family history of CVA and borderline hypertension. Patient admitted to telemetry floor for further management. CONSULTANTS: neurologist Dr. Uriarte pulmonary/critical care Dr. Knight [facility] COURSE: Patient admitted to telemetry floor. Neurologist and medical reception specialist followed. Lipid panel revealed borderline LDL 105. TSH was within normal limits. Hemoglobin A1c 5.6. Venous duplex bilateral lower extremity revealed no evidence of acute DVT. Carotid duplex was essentially unremarkable. Echocardiogram revealed preserved ejection fraction of 60% with mild left ventricular hypertrophy. No evidence of wall motion abnormality. No evidence of pericardial effusion. Right ventricular systolic pressure 28. Supplemental oxygen provided as needed to keep pulse oximetry above 92%. Pulse oximetry was stable on room air. DVT prophylaxis provided. Pain management addressed as needed. Bowel regimen instituted. Per neurologist patient likely had TIA, given overall picture of metabolic syndrome with undiagnosed mild hyperlipidemia, morbid obesity, hypertension and sedentary lifestyle. Patient started on daily aspirin. Patient was counseled on low-fat low-cholesterol diet. Follow-up with lipid panel in 3 months. Patient was unable to fit into MRI machine at this facility Patient was recommended outpatient MRI of the brain without contrast, however suspicion for acute CVA was low. Patient was hemodynamically stable. All symptoms resolved. Patient was stable for discharge home. Recommended outpatient sleep study to rule out obstructive sleep apnea. Due to rapid and unexpected improvement in patient condition, patient was discharged in 1 day. FINAL DIAGNOSES: TIA Hypertension Morbid obesity Presumptive obstructive sleep apnea Altered mental status with expressive aphasia possibly due to transient ischemic attack -resolved Borderline hyperlipidemia DISCHARGE MEDICATIONS: See Medication Reconciliation list. DISCHARGE INSTRUCTIONS: Patient was discharged home. Follow up with primary care provider in one week. I have been assigned to dictate discharge summary for this account. I was not involved in the patient's management. Lyric Harris NP Jul 22, 2018 12:15
--- NOTE | 2018-07-22 13:53 | Cardiology Report ---
APPROVED REPORT EKG Measurement Heart [id number] Normal sinus rhythm Normal ECG
--- NOTE | 2018-07-23 09:49 | Cardiology Report ---
APPROVED REPORT EXAM: Two-dimensional and M-mode echocardiogram with Doppler and color Doppler. INDICATION Left Ventricular Function M-Mode DIMENSIONS IVSd1.2 (0.7-1.1cm)Left Atrium (MM)3.5 (1.6-4.0cm) LVDd5.5 (3.5-5.6cm)Aortic Root3.5 (2.0-3.7cm) PWd1.2 (0.7-1.1cm)Aortic Cusp Exc.2.0 (1.5-2.0cm) LVDs3.4 (2.5-4.0cm) PWs1.8 cm Technically difficult study due to patient body habitus. Study quality precludes accurate assessment of regional wall motion. Normal left ventricular chamber size, systolic function and wall motion. Left ventricular ejection fraction estimated to be 60 %. Mild left ventricular hypertrophy. No evidence of pericardial effusion. All other cardiac chamber sizes are within normal limits. Normal appearing aortic, mitral, and tricuspid valves. Pulmonic valve not well visualized. Mitral annulus and aortic root calcification. Subcostal views not obtainable. A color flow and spectral Doppler study was performed and revealed: No aortic regurgitation. No mitral regurgitation. reduced left ventricular relaxation c/w impaired relaxation diastolic dysfunction. Trace tricuspid regurgitation. Tricuspid systolic velocities suggests peak right ventricular systolic pressure of 28 mmHg.
--- NOTE | 2018-07-23 14:07 | NUR ---
*-* INSURANCE *-* DISCHARGE SUMMARY HAVE BEEN FAXED. [facility] PRE CERT [phone] REPORTED TO: HAYDEE SINCLAIR# [id number] FAX# [phone] SEND CLINICALS
== END 2018-07-20 18:51 | disposition home or self-care (01) | DRG 69 ==
LOC: EMR 15:05 → 2E 16:25 → EDBEDREQ 16:36 → 2E 18:51
DX: G45.9 Transient cerebral ischemic attack, unspecified (principal); Z68.43 Body mass index [BMI] 50.0-59.9, adult; E66.01 Morbid (severe) obesity due to excess calories; I10 Essential (primary) hypertension; G47.33 Obstructive sleep apnea (adult) (pediatric); I69.820 Aphasia following other cerebrovascular disease; E78.5 Hyperlipidemia, unspecified; E88.81 Metabolic syndrome and other insulin resistance
CPT/HCPCS: 36415; 70450; 80053; 80061; 81003; 82140; 82962; 83036; 84443; 85025; 85610; 85730; 92610; 93005; 93306; 93880; 93970; 96360; 96361; 99285